=== PATIENT | male | born 1965 | race Caucasian/White ===

== ENCOUNTER 2019-03-10 08:16 | Emergency (ER) | payer BC ==
[~2019-03-10] VITALS: Ht 177.8 cm; Wt 90.7 kg
[~2019-03-10 08:16] MED LIST: ALBUTEROL2.5 MG/0.5 INH; ALBUTEROL2.5 MG/31 INH; ALEVE220 MG PO; APETEX LIQ790 MG/15; BENADRYL25 MG; BENZONATATE100 MG PO; CLONAZEPAM 1 MG1 M1 PO; EXCEDRIN CAPLE1 EACH PO; FLEXERIL PO; IBUPROFEN 400400 M2 PO; LISINOPRIL20 MG PO; MEDROLDOSEPACK PO; METFORMIN HCL500 MG PO; NICOTINE TRANSD21 M1 TOP; NORCO 5-325 TA1 EACH PO; OSELB75 PO; PANTOPRAZOLE SO40 M1 PO; PEPCID20 MG PO; PERCOCET 5-3251 EACH; PERCOCET 5-3251 EACH PO; PERCOCET 7.5-31 EACH PO; PERCOCET PO; PHENERGAN 25 MG25 M1 PO; PROAIR HFA8.5 GM INH; PROMETH-CODEIN 65 ML PO; PROMETHAZINE/C118 ML PO; ROBAXIN 750 MG750 M1 PO; SKELAXIN 800 M800 M1 PO; SYNTHROID150 MCG PO; ZPAK PO
[2019-03-10] MEDS ORDERED: LEVAQUIN 500 M500 M3 PO (08:24)
[2019-03-10] MEDS ORDERED: OMEPRAZOLE20 M1 PO (08:24)
[2019-03-10] MEDS ORDERED: ERYTHROMYCIN E3.5 G3 OPHTHALMIC (08:53)
[2019-03-10 09:06] VITALS: BP 137/88
== END 2019-03-10 09:07 | disposition home or self-care (01) ==
LOC: M.ERS 08:16
DX: S05.01XA Injury of conjunctiva and corneal abrasion without foreign body, right eye, initial encounter (principal); I10 Essential (primary) hypertension; E03.9 Hypothyroidism, unspecified; M19.90 Unspecified osteoarthritis, unspecified site; E11.9 Type 2 diabetes mellitus without complications; F17.210 Nicotine dependence, cigarettes, uncomplicated; Z90.49 Acquired absence of other specified parts of digestive tract; Z88.0 Allergy status to penicillin; Z98.890 Other specified postprocedural states; X58.XXXA Exposure to other specified factors, initial encounter; Y93.89 Activity, other specified; Y92.89 Other specified places as the place of occurrence of the external cause; Y99.8 Other external cause status

== ENCOUNTER 2019-07-11 20:36 | Inpatient (IN) | payer BC ==
[~2019-07-11] VITALS: Ht 177.8 cm; Wt 86.2 kg
[~2019-07-11 20:36] MED LIST changes: +ERYTHROMYCIN E3.5 G3 OPHTHALMIC; +LEVAQUIN 500 M500 M3 PO; +OMEPRAZOLE20 M1 PO
[2019-07-11 20:46] VITALS: BP 113/75
[2019-07-11] MEDS ORDERED: METFORMIN HCL500 M3 PO (20:57)
[2019-07-11] MEDS ORDERED: AMARYL2 MG PO (20:57)
[2019-07-11] MEDS ORDERED: DORYX MPC120 MG PO (20:57)
[2019-07-11 21:40] LABS: HEMATOCRIT 33.4 % (42.0-52.0); HEMOGLOBIN 12.1 gm/dL (14.0-18.0); MCH 34.9 pg (26.0-34.0); MCHC 36.3 g/dL (28.0-37.0); MCV 96.1 fL (80.0-100.0); MPV 8.1 fl. (7.2-11.1); NUCLEATED RBCS 0 /100WBC; PLATELET COUNT* 161 thou/uL (150-400); RBC 3.47 mil/uL (4.50-6.00); RDW-CV 12.5 % (10.5-14.5); WBC 15.3 thou/uL (4.0-11.0)
[2019-07-11 21:48] LABS: POTASSIUM 3.7 mmol/L (3.5-5.1)
[2019-07-11 21:55] LABS: INFLUENZA A ANTIGEN Negative (Negative); INFLUENZA B ANTIGEN Negative (Negative)
[2019-07-11 21:59] LABS: ALBUMIN 3.1 g/dL (3.4-5.0); TOTAL BILIRUBIN 0.6 mg/dL (<0.1-1.0); TOTAL PROTEIN 7.5 g/dL (6.4-8.2)
[2019-07-11 22:02] LABS: ABSOLUTE LYMPHOCYTES 0.6 thou/uL (0.8-5.3); ABSOLUTE MONOCYTES 0.3 thou/uL (0.0-1.2); ABSOLUTE NEUTROPHILS 14.4 thou/uL (1.6-8.1); PLATELET ESTIMATE ADEQUATE
[2019-07-11 23:59] VITALS: BP 147/84
[2019-07-12] VITALS (24 sets, daily range): BP systolic 106–140; BP diastolic 59–88
--- NOTE | 2019-07-12 09:56 | EKG ---
[place] [address] ELECTROCARDIOGRAM REPORT Name: REX MARTELL Room: [address] ADM IN .R.#: [id number] Admission: 07/11/19 Attend Phys: Misha nina Sa Discharge: Date of : 69 Date of Service: 07/11/192048 Report #: [id number] THIS REPORT FOR: //name// [facility] ED Test Date: 2019-07-11 Test Time: 20:49:51 Pat Name: REX MARTELL Department: Room: 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 : 1965 Requested By: Murali Nicholson Order Number: [id number] MD: Jason Finley Measurements Intervals [place] Rate: 108 P: 24 NM: 131 QRS: 21 QRSD: 99 T: 36 QT: 319 QTc: 428 Interpretive Statements Sinus tachycardia Baseline wander in lead(s) V2 Compared to ECG 01/11/2007 09:30:02 Sinus rhythm no longer present Rogers Parkinson White no longer seen Electronically Signed On 07-12-2019 9:55:21 CDT by Jason Finley [email or web address] <ELECTRONICALLY SIGNED> By: Jason Finley MD, [facility] 07/12/19 0955 48 48 Jason Finley MD, [facility] /EPI
[2019-07-12 09:59] LABS: CALCIUM 7.1 mg/dL (8.5-10.1); CREATININE 0.8 mg/dL (0.6-1.3); MAGNESIUM 1.7 mg/dL (1.8-2.4); POTASSIUM 3.8 mmol/L (3.5-5.1)
--- NOTE | 2019-07-12 15:28 | NUR ---
Pt lives at home with his . Pt does not have DME needs or any known hx of HH or SNF. SW/CM to remain available to assist with safe dc planning if needs arise.
--- NOTE | 2019-07-12 18:18 | NUR ---
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
[2019-07-13] VITALS (14 sets, daily range): BP systolic 105–124; BP diastolic 62–87
[2019-07-13 03:42] LABS: HEMATOCRIT 34.2 % (42.0-52.0); HEMOGLOBIN 12.5 gm/dL (14.0-18.0); MCH 35.2 pg (26.0-34.0); MCHC 36.7 g/dL (28.0-37.0); MCV 95.9 fL (80.0-100.0); MPV 7.8 fl. (7.2-11.1); RBC 3.56 mil/uL (4.50-6.00); RDW-CV 12.6 % (10.5-14.5); WBC 10.5 thou/uL (4.0-11.0)
[2019-07-13 04:00] LABS: ALBUMIN 2.8 g/dL (3.4-5.0); CALCIUM 8.5 mg/dL (8.5-10.1); CREATININE 0.7 mg/dL (0.6-1.3); POTASSIUM 3.7 mmol/L (3.5-5.1); TOTAL BILIRUBIN 0.5 mg/dL (<0.1-1.0); TOTAL PROTEIN 7.3 g/dL (6.4-8.2)
--- NOTE | 2019-07-13 07:27 | NUR ---
Pt states he rested well overnight. O2 @ 4L per NC all night, but shortly after 0630 pt desats to mid-80s following getting up to [facility] and having "coughing fit." O2 increased to 7L for now. Sats returned to mid-90s. Will continue to monitor.
--- NOTE | 2019-07-13 09:59 | NUR ---
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
--- NOTE | 2019-07-13 19:32 | NUR ---
I ASSUMED CARE OF THE PATIENT AT 1500. BED IS IN THE LOW LOCKED POSITION AND CALL LIGHT IS IN REACH. HOURLY ROUNDING IS COMPLETE AND PATIENT NEEDS ARE MET. PAIN IS MANAGED WITH PRN MEDS. FEVER IS ALSO CONTROLLED WITH PRN MEDS. HIS BROUGHT CLOTHES THAT ARE IN HIS ROOM. BLOOD SUGAR WAS CHECKED ACHS. NICOTINE PATCH IS ON RIGHT SHOULDER BLADE. COVID TEST WAS DONE AT PCP AND THEY CALLED TODAY TO SAY THE TEST WAS DONE INCORRECTLY. OUR COVID TEST IS PENDING STILL. ISOLATION WAS MAINTAINED. HE IS CURRENTLY ON 4L NC OF OXYGEN BEING TITRATED. WILL CONTINUE TO MONITOR.
[2019-07-14] VITALS: BP 95/73
[2019-07-14 04:30] VITALS: BP 114/75
[2019-07-14 04:59] LABS: HEMATOCRIT 34.5 % (42.0-52.0); HEMOGLOBIN 12.5 gm/dL (14.0-18.0); MCHC 36.4 g/dL (28.0-37.0); MCV 96.2 fL (80.0-100.0); MPV 7.2 fl. (7.2-11.1); NUCLEATED RBCS 0 /100WBC; RBC 3.59 mil/uL (4.50-6.00); RDW-CV 12.4 % (10.5-14.5); WBC 8.3 thou/uL (4.0-11.0)
--- NOTE | 2019-07-14 04:59 | NUR ---
ASSUMED CARE OF PT AFTER REPORT AT 1930. PT A&OX4. VSS. PHYSICAL ASSESSMENT COMPLETED AND CHARTED. PT ON O2 AT 4L NC. PT TRACING SR ON TELE. PT UPADLIB TO RESTROOM. PT DENIES ANY PAIN OR DISCOMFORT. PT ABLE TO SLEEP WELL ON BED. CALL LIGHT WITHIN REACH.
[2019-07-14 05:14] LABS: ALBUMIN 2.8 g/dL (3.4-5.0); CALCIUM 9.1 mg/dL (8.5-10.1); CREATININE 0.6 mg/dL (0.6-1.3); POTASSIUM 3.5 mmol/L (3.5-5.1); TOTAL BILIRUBIN 0.5 mg/dL (<0.1-1.0); TOTAL PROTEIN 7.4 g/dL (6.4-8.2)
[2019-07-14 05:26] LABS: PLATELET COUNT* 276 thou/uL (150-400)
[2019-07-14 06:33] LABS: ABSOLUTE BASOPHILS 0.1 thou/uL (0.0-0.2); ABSOLUTE EOSINOPHILS 0.1 thou/uL (0.0-0.7); ABSOLUTE LYMPHOCYTES 1.4 thou/uL (0.8-5.3); ABSOLUTE MONOCYTES 0.6 thou/uL (0.0-1.2); ABSOLUTE NEUTROPHILS 6.1 thou/uL (1.6-8.1); PLATELET ESTIMATE ADEQUATE
[2019-07-14 08:00] VITALS: BP 116/78
[2019-07-14 12:11] VITALS: BP 113/71
--- NOTE | 2019-07-14 13:39 | NUR ---
PT VSS, A&OX4, NSR ON TELE, NC@4L, PT UP AD FIDEL, PT REPORTING LOWER BACK PAIN, COVID-19 NOT DETECTED- STILL IN ENHANCED DROPLET PRECAUTIONS, HOURLY ROUNDING PERFORMED, POSSESSIONS AND CALL LIGHT WITHIN REACH.
[2019-07-14 16:34] VITALS: BP 96/67
[2019-07-14 19:15] VITALS: BP 106/64
--- NOTE | 2019-07-15 03:34 | NUR ---
ASSUMED CARE OF PT AT 1900. PT IS ALERT AND ORIENTED. VSS. PERRLA. NO COMPLAINTS OF PAIN. PT IS ON 4 LITERS O2. PT IS SINUS RYTHM ON THE TELEMETRY. PT IS RESTING COMFORTABLY IN BED. RESPIRATIONS ARE EVEN AND NONLABORED. WILL CONTINUE TO MONITOR PT.
[2019-07-15 04:54] LABS: HEMATOCRIT 36.2 % (42.0-52.0); MCH 34.5 pg (26.0-34.0); MCHC 35.9 g/dL (28.0-37.0); MCV 95.9 fL (80.0-100.0); MPV 6.7 fl. (7.2-11.1); RBC 3.77 mil/uL (4.50-6.00); RDW-CV 12.7 % (10.5-14.5); WBC 8.7 thou/uL (4.0-11.0)
[2019-07-15 05:29] LABS: ALBUMIN 2.9 g/dL (3.4-5.0); CALCIUM 8.8 mg/dL (8.5-10.1); CREATININE 0.7 mg/dL (0.6-1.3); POTASSIUM 3.7 mmol/L (3.5-5.1); TOTAL BILIRUBIN 0.4 mg/dL (<0.1-1.0); TOTAL PROTEIN 7.5 g/dL (6.4-8.2)
[2019-07-15 08:30] VITALS: BP 122/86
--- NOTE | 2019-07-15 10:54 | NUR ---
CM RECIEVED PHYSICIANS CONSULT TO INFORM OF DISCHARGE PLANNING NEEDS INCLUDING HH [facility] PT/OT, AND POSSIBLE OXYGEN PT CURRENTLY REQUIRES 4L O2 VIA NC AND WAS NOT ON OXYGEN PRIOR TO ADMISSION. CM WILL CONTIUE TO FOLLOW TO ASSIST WITH D/C PLANNING FOR HH AND HOME OXYGEN.
[2019-07-15 12:00] VITALS: BP 118/76
[2019-07-15 16:00] VITALS: BP 115/72
--- NOTE | 2019-07-15 17:58 | NUR ---
PT A&OX4 VSS. PT REPORTS BEING DAILY SMOKER, NICOTINE PATCH T0 R POSTERIOR SHOULDER THIS SHIFT. PT ON 3-4L O2, ALTHOUGH HE REPORTS HE DOES NOT WEAR IT AT HOME. PT HAS NEGATIVE RESULT FOR COVID-19, PROVIDER AWARE AND PT IS NOW PLACED ON DROPLET PRECAUTIONS. PT IS ACCUCHECK WITH PO MEDICATIONS TO REGULATE BLOOD GLUCOSE. IV TO RFA PATENT, SALINE LOCKED. DRESSING C/D/I. PT UP TO SHOWER THIS AFTERNOON PRIOR TO DINNER. PT RESTS IN ROOM AT THIS TIME WITH CALL LIGHT IN REACH. WILL CONTINUE TO MONITOR.
[2019-07-16 04:11] VITALS: BP 114/79
--- NOTE | 2019-07-16 07:44 | NUR ---
ASSUMED PT CARE AT 1930. NURSING ASSESSMENT COMPLETED AT START OF SHIFT. 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 HOURLY ROUNDING COMPLETED. CALL LIGHT WITHIN REACH. PT VOICED NO CONCERNS THIS SHIFT.
[2019-07-16 08:00] VITALS: BP 127/84
[2019-07-16] MEDS ORDERED: METFORMIN HCL500 M3 PO (08:35)
[2019-07-16 10:28] VITALS: BP 127/84
[2019-07-16 11:03] VITALS: BP 127/84
--- NOTE | 2019-07-16 11:21 | NUR ---
Pt discharging to home today. Pt needs home o2, order/referral faxed to [facility] to deliver portable tank. Pt declined HH.
--- NOTE | 2019-07-16 13:03 | NUR ---
PT VSS, A&OX4, NSR ON TELE, NC@1L, HOURLY ROUNDING PERFORMED, POSSESSIONS AND CALL LIGHT WITHIN REACH. UP AD FIDEL, REC DISCHARGE ORDERS, REVIEWED WITH PATIENT, TELE MONITOR AND IV REMOVED WITHOUT COMPLICATION. PATIENT TAKEN TO FRONT DOOR IN WHEELCHAIR BY NURSING STAFF, PICKED UP BY SPOUSE IN FAMILY CAR.
== END 2019-07-16 12:30 | disposition home or self-care (01) | DRG 193 ==
LOC: M.ERS 20:36 → M.ICU 22:01 → M.TBA-ER 22:01 → M.2W 22:01 → M.ICU 23:47 → M.2W 07-13 15:00
PROVIDERS: Emergency Medicine Emergency Medical Services; Internal Medicine; ADMIT Family Medicine
DX: J18.9 Pneumonia, unspecified organism (principal); J96.01 Acute respiratory failure with hypoxia; J44.0 Chronic obstructive pulmonary disease with (acute) lower respiratory infection; J44.1 Chronic obstructive pulmonary disease with (acute) exacerbation; E87.1 Hypo-osmolality and hyponatremia; E03.9 Hypothyroidism, unspecified; G89.29 Other chronic pain; M19.90 Unspecified osteoarthritis, unspecified site; E11.9 Type 2 diabetes mellitus without complications; J20.8 Acute bronchitis due to other specified organisms; I10 Essential (primary) hypertension; Z03.818 Encounter for observation for suspected exposure to other biological agents ruled out; Z90.49 Acquired absence of other specified parts of digestive tract; Z79.899 Other long term (current) drug therapy; Z79.84 Long term (current) use of oral hypoglycemic drugs; Z88.0 Allergy status to penicillin; Z83.3 Family history of diabetes mellitus; Z71.6 Tobacco abuse counseling

== ENCOUNTER 2020-07-12 18:51 | Inpatient (IN) | payer BC ==
[~2020-07-12] VITALS: Ht 175.3 cm; Wt 88.0 kg
[~2020-07-12 18:51] MED LIST changes: +AMARYL2 MG PO; +DORYX MPC120 MG PO; +METFORMIN HCL500 M3 PO
[2020-07-12 19:13] VITALS: BP 204/119
[2020-07-12 19:35] LABS: ABSOLUTE BASOPHILS 0.2 thou/uL (0.0-0.2); ABSOLUTE EOSINOPHILS 0.1 thou/uL (0.0-0.7); ABSOLUTE LYMPHOCYTES 2.3 thou/uL (0.8-5.3); ABSOLUTE MONOCYTES 1.2 thou/uL (0.0-1.2); BASOPHILS 1.3 %; EOSINOPHILS 0.7 %; HEMATOCRIT 45.3 % (42.0-52.0); HEMOGLOBIN 15.8 gm/dL (14.0-18.0); LYMPHOCYTES 15.5 %; MCH 33.3 pg (26.0-34.0); MCHC 34.9 g/dL (28.0-37.0); MCV 95.4 fL (80.0-100.0); MONOCYTES 8.2 %; MPV 7.2 fl. (7.2-11.1); NUCLEATED RBCS 0 /100WBC; PLATELET COUNT* 277 thou/uL (150-400); POLYS 74.3 %; RBC 4.74 mil/uL (4.50-6.00); RDW-CV 12.5 % (10.5-14.5); WBC 14.8 thou/uL (4.0-11.0)
[2020-07-12 19:44] LABS: CALCIUM 9.1 mg/dL (8.5-10.1); POTASSIUM 4.2 mmol/L (3.5-5.1)
[2020-07-12 19:45] LABS: PROTIME 10.7 Seconds (9.20-11.50)
[2020-07-12 19:54] LABS: ALBUMIN 4.8 g/dL (3.4-5.0); MAGNESIUM 1.9 mg/dL (1.8-2.4); TOTAL BILIRUBIN 0.9 mg/dL (<0.1-1.0); TOTAL PROTEIN 8.8 g/dL (6.4-8.2)
[2020-07-12 22:50] VITALS: BP 169/101
[2020-07-12 23:00] VITALS: BP 169/106
[2020-07-13 04:00] VITALS: BP 169/97
--- NOTE | 2020-07-13 09:48 | EKG ---
[place] [address] ELECTROCARDIOGRAM REPORT Name: REX MARTELL Room: [address] ADM IN [facility]#: [id number] Admission: 07/12/20 Attend Phys: Dakota England Discharge: Date of : 69 Date of Service: 07/12/20 1909 Report #: [id number] THIS REPORT FOR: //name// [facility] ED Test Date: 2020-07-12 Test Time: 19:09:35 Pat Name: REX MARTELL Department: Room: 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 : 1965 Requested By: Claudia Howard Order Number: [id number] MD: Jason Finley Measurements Intervals [place] Rate: 123 P: 130 KS: 157 QRS: -5 QRSD: 87 T: 124 QT: 301 QTc: 431 Interpretive Statements Sinus tachycardia Probable left atrial enlargement Low voltage, extremity leads Nonspecific T abnormalities, lateral leads Baseline wander in lead(s) V2,V3,V4,V5,V6 Compared to ECG 07/11/2019 20:49:51 Low QRS voltage now present T-wave abnormality now present Electronically Signed On 07-13-2020 9:48:19 CDT by Jason Finley [email or web address] <ELECTRONICALLY SIGNED> By: Jason Finley MD, [facility] 07/13/20 0948 08 08 Jason Finley MD, [facility] /EPI
[2020-07-13 11:37] VITALS: BP 179/104
[2020-07-13 15:47] VITALS: BP 183/117
[2020-07-13 20:00] VITALS: BP 163/98
[2020-07-14 00:32] VITALS: BP 154/105
[2020-07-14 05:16] VITALS: BP 152/97
[2020-07-14 07:00] LABS: URINE BILIRUBIN NEGATIVE (Negative); URINE BLOOD NEGATIVE (Negative); URINE CLARITY CLEAR; URINE COLOR YELLOW; URINE GLUCOSE-RANDOM 3+ (Negative); URINE KETONES NEGATIVE (Negative); URINE LEUKOCYTES-REFLEX NEGATIVE (Negative); URINE NITRITE-REFLEX NEGATIVE (Negative); URINE PROTEIN NEGATIVE (Negative); URINE UROBILINOGEN 0.2 E.U./dl (0.2-1.0)
[2020-07-14 07:22] LABS: AMP/METHAMP Negative (Negative); BARBITURATES Negative (Negative); BENZODIAZEPINES Negative (Negative); COCAINE Negative (Negative); METHADONE Negative (Negative); OPIATES POSITIVE (Negative); PCP Negative (Negative); THC Negative (Negative)
[2020-07-14 08:49] VITALS: BP 162/103
[2020-07-14 10:45] LABS: MCH 33.3 pg (26.0-34.0); MCHC 35.2 g/dL (28.0-37.0); MCV 94.7 fL (80.0-100.0); MPV 6.7 fl. (7.2-11.1); RBC 3.91 mil/uL (4.50-6.00); WBC 7.2 thou/uL (4.0-11.0)
[2020-07-14 10:52] LABS: CALCIUM 8.1 mg/dL (8.5-10.1); CREATININE 0.6 mg/dL (0.6-1.3); POTASSIUM 3.4 mmol/L (3.5-5.1)
[2020-07-14 12:00] VITALS: BP 133/91
[2020-07-14 16:00] VITALS: BP 146/96
[2020-07-14 20:00] VITALS: BP 139/103
[2020-07-15 00:44] VITALS: BP 154/100
[2020-07-15 03:50] VITALS: BP 143/78
[2020-07-15 04:40] LABS: CALCIUM 8.4 mg/dL (8.5-10.1); CREATININE 0.7 mg/dL (0.6-1.3); MAGNESIUM 2.3 mg/dL (1.8-2.4); PHOSPHORUS* 2.7 mg/dL (2.5-4.9); POTASSIUM 3.6 mmol/L (3.5-5.1)
[2020-07-15 08:00] VITALS: BP 142/99
[2020-07-15 11:50] VITALS: BP 134/92
[2020-07-15] MEDS ORDERED: HYDROCODON-ACE1 EAC7 PO (12:52)
[2020-07-15 14:12] VITALS: BP 134/92
== END 2020-07-15 16:00 | disposition home or self-care (01) | DRG 439 ==
LOC: M.ERS 18:51 → M.TBA-ER 21:14 → M.2W 21:14
PROVIDERS: Emergency Medicine; Family Medicine; ADMIT Internal Medicine; ATTEND Internal Medicine
DX: K85.90 Acute pancreatitis without necrosis or infection, unspecified (principal); E87.1 Hypo-osmolality and hyponatremia; K92.1 Melena; I10 Essential (primary) hypertension; E03.9 Hypothyroidism, unspecified; G89.29 Other chronic pain; M54.9 Dorsalgia, unspecified; M19.90 Unspecified osteoarthritis, unspecified site; E11.9 Type 2 diabetes mellitus without complications; F10.20 Alcohol dependence, uncomplicated; Y90.9 Presence of alcohol in blood, level not specified; K21.9 Gastro-esophageal reflux disease without esophagitis; K64.9 Unspecified hemorrhoids; J44.9 Chronic obstructive pulmonary disease, unspecified; F17.210 Nicotine dependence, cigarettes, uncomplicated; Z20.822 Contact with and (suspected) exposure to COVID-19; Z79.899 Other long term (current) drug therapy; Z90.49 Acquired absence of other specified parts of digestive tract; Z79.84 Long term (current) use of oral hypoglycemic drugs; Z88.0 Allergy status to penicillin